=== PATIENT | male | born 1950 | race Caucasian/White ===

== ENCOUNTER 2016-07-24 01:21 | Emergency (ER) | payer MEDICARE, MEDICAID ==
[~2016-07-24] VITALS: Ht 170.2 cm; Wt 64.9 kg
[2016-07-24] MEDS ORDERED: ATOR20TA66 (01:48)
[2016-07-24] MEDS ORDERED: DAPA5TAB (01:48)
[2016-07-24] MEDS ORDERED: RX-NAPROXEN (NAPROSYN) 250 MG TAB PPK#4 PO ONE (02:41)
[2016-07-24] MEDS ORDERED: RX-NAPROXEN (NAPROSYN) 250 MG TAB PPK#4 PO STA (02:42)
[2016-07-24] MEDS ORDERED: NAPR500T3 PO (02:42)
--- NOTE | 2016-07-24 02:42 | ED Upper Extremity ---
General Chief Complaint: Upper Extremity Stated Complaint: LEFT WRIST PAIN Nursing Triage Note: PT TO ED 6 W/ C/O LT HAND/WRIST PAIN ONSET AFTER FALLING WHILE HANDLING HIS DAUGHTERS DOG. REPORTS HE CANNOT BED HIS FINGERS ET [place] Nursing Sepsis Screen: No Definite Risk Source: patient (PT IS VERY LIMITED HISTORIAN--KNOWS NONE OF HIS MEDICATIONS, AND ONLY KNOWS THAT HE HAS DIABETES) History of Present Illness Time seen by provider: 02:05 Initial Comments C/O LEFT HAND AND WRIST PAIN STATES HE WAS GETTING A DOG OUT OF A VEHICLE AND DOG TOOK OFF AND SOMEHOW PT FELL, INJURING HIS LEFT HAND AND WRIST--OCCURRED AROUND 1300 THIS AFTERNOON IS NOT EXACTLY SURE HOW HE LANDED--PT STATES HE DIDN'T EVEN KNOW HE INJURED HIMSELF UNTIL IT STARTED HURTING LATER THIS EVENING HAS NOT TAKEN ANYTHING FOR PAIN NO OTHER INJURIES NO PRIOR INJURIES TO THIS HAND/WRIST PT IS LEFT HANDED PT HERE VISITING FROM [place] Allergies and Home Medications Allergies Coded Allergies: No Known Drug Allergies (Unverified , 07/24/16) Home Medications Atorvastatin Calcium 20 Mg Tablet, #90 (Reported) Dapagliflozin Propanediol 5 Mg Tablet, #90 (Reported) Naproxen 500 Mg Tablet, 500 MG PO BID, #20 Prescribed by: DONNELL BENDER on 07/24/16 0242 Constitutional: no symptoms reported Musculoskeletal: see HPI Skin: no symptoms reported Psychiatric/Neurological: No Symptoms Reported Past [id number]-Itecbo Hx Patient Social History Alcohol Use: Past History (QUIT 1981) Recreational Drug Use: No Smoking Status: Former Smoker Type Used: Cigarettes Recent Foreign Travel: No Contact w/Someone Who Travel: No Recent Infectious Disease Expo: No Recent Hopitalizations: No Surgeries HX Surgeries: No Respiratory Hx Respiratory Disorders: No Cardiovascular Hx Cardiac Disorders: No Neurological Hx Neurological Disorders: No Reproductive System Hx Reproductive Disorders: No Sexually Transmitted Disease: No Genitourinary Hx Genitourinary Disorders: No Gastrointestinal Hx Gastrointestinal Disorders: No Musculoskeletal Hx Musculoskeletal Disorders: No Endocrine Hx Endocrine Disorders: Yes Endocrine Disorders: Diabetes, Non-Insulin dep HEENT HX ENT Disorders: No Cancer Hx Cancer: No Psychosocial Hx Psychiatric Problems: No Integumentary HX Skin/Integumentary Disorder: No Blood Transfusions Hx Blood Disorders: No Physical Exam Vital Signs Vital Sign - Last 12Hours 07/24/16 01:35 Temp 98.5 Pulse 83 Resp 18 B/P (MAP) 133/78 Pulse Ox 95 O2 Delivery Room Air Capillary Refill : Less Than 3 Seconds General Appearance: WD/WN, no apparent distress, other (SLEEPING SOUNDLY. DOES NOT APPEAR TO BE IN ANY DISCOMFORT) Shoulder: normal inspection Elbow/Forearm: normal inspection Wrist: No abrasions, Yes bone tenderness, No ecchymosis, Yes limited ROM, Yes soft tissue tenderness, Yes swelling Hand: Left, bone tenderness, limited ROM, soft tissue tenderness, swelling Neurologic/Tendon: normal sensation, normal motor functions, normal tendon functions Neurologic/Psychiatric: pearl peller II-XII nml as tested, no motor/sensory deficits, alert, oriented x 3 Skin: normal color, warm/dry Splinting and Joint Reduction : Splints: Arin Wrist Progress/Results/Core Measures Results/Orders My Orders Orders - DONNELL BENDER DO Wrist, Left, 3 Views Or More (07/24/16 02:07) Hand, Left, 3 Views (07/24/16 02:07) Wrist-[place] (07/24/16 02:38) Rx-Naproxen (Rx-Naprosyn) (07/24/16 02:42) Rx-Naproxen (Rx-Naprosyn) (07/24/16 02:41) Vital Signs/I&O Vital Sign - Last 12Hours 07/24/16 07/24/16 01:35 02:54 Temp 98.5 Pulse 83 82 Resp 18 18 B/P (MAP) 133/78 Pulse Ox 95 94 O2 Delivery Room Air Blood Pressure Mean: 96 Progress Note : Progress Note SLEPT THROUGH NEARLY ALL OF ER STAY Diagnostic Imaging Comments LEFT HAND AND WRIST--NO ACUTE PROCESS, PENDING RADIOLOGIST REVIEW Reviewed: Reviewed by Me Departure Impression Impression: Primary Impression: Left wrist sprain Disposition: HOME, SELF-CARE Condition: Stable Departure-Patient Inst. Referrals: NO,LOCAL PHYSICIAN (PCP) Primary Care Physician Patient Instructions: SPLINT CARE, Wrist Sprain (DC) Add. Discharge Instructions: ICE TO AREA AT 20 MINUTE INTERVALS WEAR SPLINT NEEDED FOR COMFORT ELEVATE HAND MUCH POSSIBLE FOLLOW UP WITH YOUR DR AT HOME IN 1 WEEK IF NO BETTER All discharge instructions reviewed with patient and/or family. Voiced understanding. Scripts Naproxen (Naproxen) 500 Mg Tablet 500 MG PO BID, #20 TAB Prov: DONNELL BENDER DO 07/24/16 DONNELL BENDER DO July 24, 2016 02:42
[2016-07-24 02:54] VITALS: BP 144/87
--- NOTE | 2016-07-24 07:16 | Diagnostic Imaging Report ---
CLINICAL INDICATION: Patient fell and landed on hand. Patient has pain in lateral side of wrist and fingers. EXAM: X-ray of the left hand, 3 views. COMPARISON: None. FINDINGS: There is no evidence of acute fracture or dislocation. There is mild spurring involving the DIP joints and first MCP joint and first CMC joint. There is a bony erosion involving the radial aspect of the base of the fifth proximal phalanx. IMPRESSION: 1: There is no evidence of acute fracture or dislocation. 2: Nonspecific bony erosion involving the radial aspect of the base of the fifth proximal phalanx. Erosive arthropathy such as rheumatoid arthritis should be excluded. 3: Degenerative disease of the left hand. Dictated by: Dictated on workstation # [id number]
--- NOTE | 2016-07-24 07:17 | Diagnostic Imaging Report ---
Clinical indication: Patient fell and landed on hand. Patient has pain in lateral aspect of the wrist and fingers. Exam: X-ray left wrist, 3 views. Comparison: None. FINDINGS: There is no evidence of acute fracture or dislocation. The scapholunate interval is within normal limits. There is mild spurring of the first CMC joint. Impression: 1.: There is no evidence of acute fracture or dislocation. 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 Dictated by: Dictated on workstation # [id number]
== END 2016-07-24 02:54 | disposition home or self-care (01) ==
LOC: ER 01:25
DX: S63.502A Unspecified sprain of left wrist, initial encounter (principal); E11.9 Type 2 diabetes mellitus without complications; W19.XXXA Unspecified fall, initial encounter; Y99.8 Other external cause status
CPT/HCPCS: 73110; 73130; 99283